=== PATIENT | female | born 1965 | race Caucasian/White ===

== ENCOUNTER 2021-06-03 20:27 | Inpatient (IN) | payer MEDICARE ==
[2021-06-03 22:33] VITALS: BMI 24.3
[2021-06-04] MEDS ORDERED: Ondansetron PF 4 MG/2 ML Vial IVP PRN (00:05)
[2021-06-04] MEDS ORDERED: Ondansetron ODT 4 MG TAB PO PRN (00:05)
[2021-06-04] MEDS ORDERED: Loperamide HCl 2 MG CAP PO PRN (00:05)
[2021-06-04] MEDS ORDERED: Electrolyte Replacement Protocol 1 EACH FS SCH (00:15)
[2021-06-04] MEDS ORDERED: Tacrolimus 1 MG CAP PO SCH (00:45)
[2021-06-04] MEDS ORDERED: Mycophenolate 250 MG CAP PO SCH (00:45)
[2021-06-04] MEDS ORDERED: traZODone HCl 50 MG TAB PO SCH (01:00)
[2021-06-04] MEDS: Sodium Chloride 0.9% 1,000 ML IV SCH ×4 (01:05→20:19)
[2021-06-04] MEDS: Morphine 4 MG/ML VIAL SLOW IVP PRN ×2 (01:06→12:22)
[2021-06-04] MEDS: traMADol HCl 50 MG TAB PO PRN ×3 (01:07→16:26)
[2021-06-04] MEDS: Fish Oil 1,000 MG CAP PO SCH ×3 (01:15→20:18)
[2021-06-04] MEDS: Methocarbamol 500 MG TAB PO SCH ×4 (01:16→20:18)
[2021-06-04 04:19] LABS: Phosphorus 4.3 mg/dL (2.3-4.7)
[2021-06-04 04:21] LABS: Anion Gap 12 mmol/L (10-20); BUN (Urea Nitrogen) 62 mg/dL (9.8-20.1); Calc. Creatinine Clearance 21 mL/min (70-130); Calcium 7.8 mg/dL (7.8-10.44); Carbon Dioxide 13 mmol/L (22-29); Chloride 117 mmol/L (98-107); Glucose 84 mg/dL (70-105); Magnesium 1.6 mg/dL (1.6-2.6); Potassium 3.3 mmol/L (3.5-5.1); Sodium 139 mmol/L (136-145)
[2021-06-04 04:26] LABS: #Eosinphils 0.1 thou/uL (0.0-0.7); #Lymphocytes 1.2 thou/uL (1.20-3.40); #Monocytes 0.4 thou/uL (0.11-0.59); #Neutrophils 1.6 thou/uL (1.40-6.50); %Basophils 0.8 % (0.0-1.0); %Eosinophils 3.6 % (0.0-10.0); %Lymphocytes 35.8 % (21.0-51.0); %Monocytes 10.6 % (0.0-10.0); %Neutrophils 49.2 % (42.0-75.0); Hemoglobin 9.1 g/dL (12.0-16.0); Mean Corpuscular HGB CONC 33.7 g/dL (32.0-36.0); Mean Corpuscular Hemoglobin 30.9 pg (27.0-31.0); Mean Corpuscular Volume 91.6 fL (78.0-98.0); Mean Platelet Volume 10.4 fL (7.4-10.4); Platelet Count 105 thou/uL (130-400); Platelet Morphology Comment Appears Decreased; RBC Distribution Width 13.6 % (11.5-14.5); Red Blood Cell (RBC) Count 2.96 mill/uL (4.20-5.40); White Blood Cell (WBC) Count 3.3 thou/uL (4.8-10.8)
[2021-06-04] MEDS ORDERED: Potassium Chloride 20 MEQ TAB PO SCH (04:26)
[2021-06-04] MEDS: Magnesium 2 GM/50 ML 2 GM in Premix Bag 1 BAG IVPB SCH ×2 (05:52→06:49)
[2021-06-04] MEDS: Tacrolimus 1 MG CAP PO SCH ×2 (09:23→20:19)
[2021-06-04] MEDS: Mycophenolate 250 MG CAP PO SCH ×2 (10:08→20:27)
[2021-06-04] MEDS ORDERED: Acetaminophen 325 MG TAB PO SCH (10:15)
[2021-06-04] MEDS: Sodium Bicarbonate Tab 325 MG TAB PO SCH ×2 (16:23→20:17)
[2021-06-04] MEDS: traZODone HCl 50 MG TAB PO SCH (20:18)
[2021-06-05] MEDS: Methocarbamol 500 MG TAB PO SCH ×4 (03:22→20:30)
[2021-06-05] MEDS: Fish Oil 1,000 MG CAP PO SCH ×3 (03:22→20:30)
[2021-06-05] MEDS: traMADol HCl 50 MG TAB PO PRN ×2 (04:06→20:40)
[2021-06-05] MEDS: Sodium Chloride 0.9% 1,000 ML IV SCH (04:14)
[2021-06-05] MEDS: Morphine 4 MG/ML VIAL SLOW IVP PRN ×2 (05:07→16:56)
[2021-06-05 05:59] LABS: #Eosinphils 0.1 thou/uL (0.0-0.7); #Lymphocytes 0.6 thou/uL (1.20-3.40); #Monocytes 0.3 thou/uL (0.11-0.59); #Neutrophils 1.8 thou/uL (1.40-6.50); %Basophils 0.3 % (0.0-1.0); %Eosinophils 2.8 % (0.0-10.0); %Lymphocytes 21.1 % (21.0-51.0); %Monocytes 11.2 % (0.0-10.0); %Neutrophils 64.7 % (42.0-75.0); Hemoglobin 8.7 g/dL (12.0-16.0); Mean Corpuscular HGB CONC 32.8 g/dL (32.0-36.0); Mean Corpuscular Hemoglobin 30.8 pg (27.0-31.0); Mean Corpuscular Volume 93.7 fL (78.0-98.0); Mean Platelet Volume 10.3 fL (7.4-10.4); Platelet Count 99 thou/uL (130-400); Red Blood Cell (RBC) Count 2.81 mill/uL (4.20-5.40); White Blood Cell (WBC) Count 2.8 thou/uL (4.8-10.8)
[2021-06-05 06:03] LABS: Anion Gap 12 mmol/L (10-20); BUN (Urea Nitrogen) 46 mg/dL (9.8-20.1); Calc. Creatinine Clearance 23 mL/min (70-130); Carbon Dioxide 13 mmol/L (22-29); Chloride 119 mmol/L (98-107); Glucose 86 mg/dL (70-105); Potassium 3.7 mmol/L (3.5-5.1); Sodium 140 mmol/L (136-145)
[2021-06-05] MEDS: Sodium Bicarbonate Tab 325 MG TAB PO SCH ×3 (09:18→20:30)
[2021-06-05] MEDS: Mycophenolate 250 MG CAP PO SCH ×2 (09:19→20:31)
[2021-06-05] MEDS ORDERED: Fioricet 325/50/40 mg Tablet PO PRN (09:20)
[2021-06-05] MEDS ORDERED: Fentanyl 250 MCG/5 ML VIAL ONE (10:52)
[2021-06-05] MEDS ORDERED: Ketamine 50 MG/ML (10ML VIAL) ONE (11:07)
[2021-06-05] MEDS ORDERED: PROPOFOL 200 MG/20 ML VIAL ONE (11:51)
[2021-06-05] MEDS ORDERED: SUMAtriptan Succinate 50 MG TAB PO PRN (12:10)
[2021-06-05 14:49] LABS: Iron 121 ug/dL (50-170); Iron Binding Capacity, Total 194 mcg/dL (265-497)
[2021-06-05 15:16] LABS: Ferritin 146.4 ng/mL (10-291)
[2021-06-05] MEDS: Metoclopramide HCl 10 MG/2 ML VIAL IVP SCH ×2 (15:33→20:30)
[2021-06-05] MEDS: Tacrolimus 1 MG CAP PO SCH ×2 (15:37→20:30)
[2021-06-05] MEDS: traZODone HCl 50 MG TAB PO SCH (20:31)
[2021-06-06] MEDS: Morphine 4 MG/ML VIAL SLOW IVP PRN ×3 (01:09→19:58)
[2021-06-06] MEDS: Metoclopramide HCl 10 MG/2 ML VIAL IVP SCH ×3 (05:49→20:44)
[2021-06-06] MEDS: traMADol HCl 50 MG TAB PO PRN (05:51)
[2021-06-06 06:10] LABS: #Eosinphils 0.1 thou/uL (0.0-0.7); #Lymphocytes 0.8 thou/uL (1.20-3.40); #Monocytes 0.4 thou/uL (0.11-0.59); #Neutrophils 1.9 thou/uL (1.40-6.50); %Basophils 0.3 % (0.0-1.0); %Eosinophils 2.3 % (0.0-10.0); %Lymphocytes 25.9 % (21.0-51.0); %Monocytes 11.4 % (0.0-10.0); Hemoglobin 8.9 g/dL (12.0-16.0); Mean Corpuscular HGB CONC 32.1 g/dL (32.0-36.0); Mean Corpuscular Hemoglobin 30.1 pg (27.0-31.0); Mean Platelet Volume 10.5 fL (7.4-10.4); Platelet Count 107 thou/uL (130-400); RBC Distribution Width 14.1 % (11.5-14.5); Red Blood Cell (RBC) Count 2.96 mill/uL (4.20-5.40); White Blood Cell (WBC) Count 3.1 thou/uL (4.8-10.8)
[2021-06-06 06:33] LABS: Anion Gap 12 mmol/L (10-20); BUN (Urea Nitrogen) 36 mg/dL (9.8-20.1); Calc. Creatinine Clearance 23 mL/min (70-130); Calcium 7.9 mg/dL (7.8-10.44); Carbon Dioxide 14 mmol/L (22-29); Chloride 118 mmol/L (98-107); Glucose 84 mg/dL (70-105); Potassium 3.5 mmol/L (3.5-5.1); Sodium 140 mmol/L (136-145)
[2021-06-06] MEDS: Fish Oil 1,000 MG CAP PO SCH ×2 (08:33→20:43)
[2021-06-06] MEDS: Sodium Bicarbonate Tab 325 MG TAB PO SCH ×3 (08:33→20:43)
[2021-06-06] MEDS: Methocarbamol 500 MG TAB PO SCH ×3 (08:33→20:43)
[2021-06-06] MEDS: Tacrolimus 1 MG CAP PO SCH ×2 (08:33→20:43)
[2021-06-06] MEDS: Mycophenolate 250 MG CAP PO SCH ×2 (09:37→20:43)
[2021-06-06] MEDS: traZODone HCl 50 MG TAB PO SCH (20:43)
[2021-06-07] MEDS: Morphine 4 MG/ML VIAL SLOW IVP PRN ×2 (02:18→23:48)
[2021-06-07] MEDS: Metoclopramide HCl 10 MG/2 ML VIAL IVP SCH ×3 (05:22→20:21)
[2021-06-07] MEDS: traMADol HCl 50 MG TAB PO PRN ×2 (05:25→20:35)
[2021-06-07 06:28] LABS: Anion Gap 10 mmol/L (10-20); BUN (Urea Nitrogen) 30 mg/dL (9.8-20.1); Calc. Creatinine Clearance 24 mL/min (70-130); Carbon Dioxide 18 mmol/L (22-29); Chloride 117 mmol/L (98-107); Glucose 97 mg/dL (70-105); Potassium 3.5 mmol/L (3.5-5.1); Sodium 141 mmol/L (136-145)
[2021-06-07] MEDS: Methocarbamol 500 MG TAB PO SCH ×3 (09:24→20:22)
[2021-06-07] MEDS: Sodium Bicarbonate Tab 325 MG TAB PO SCH ×3 (09:24→20:22)
[2021-06-07] MEDS: Mycophenolate 250 MG CAP PO SCH ×2 (09:24→20:29)
[2021-06-07] MEDS: Fish Oil 1,000 MG CAP PO SCH ×2 (09:24→20:21)
[2021-06-07] MEDS: Dextrose 5 %-0.45 % NaCl 1,000 ML IV SCH ×2 (09:24→18:04)
[2021-06-07] MEDS: Tacrolimus 1 MG CAP PO SCH ×2 (09:25→20:22)
[2021-06-07] MEDS: traZODone HCl 50 MG TAB PO SCH (20:22)
[2021-06-08 07:12] LABS: Anion Gap 9 mmol/L (10-20); BUN (Urea Nitrogen) 22 mg/dL (9.8-20.1); Calc. Creatinine Clearance 29 mL/min (70-130); Calcium 7.8 mg/dL (7.8-10.44); Carbon Dioxide 19 mmol/L (22-29); Chloride 115 mmol/L (98-107); Glucose 102 mg/dL (70-105); Potassium 3.2 mmol/L (3.5-5.1); Sodium 140 mmol/L (136-145)
[2021-06-08] MEDS: Tacrolimus 1 MG CAP PO SCH ×2 (08:51→19:43)
[2021-06-08] MEDS: Mycophenolate 250 MG CAP PO SCH ×2 (08:51→19:42)
[2021-06-08] MEDS: Sodium Bicarbonate Tab 325 MG TAB PO SCH ×3 (08:51→19:43)
[2021-06-08] MEDS: Fish Oil 1,000 MG CAP PO SCH ×2 (08:52→19:42)
[2021-06-08] MEDS: Methocarbamol 500 MG TAB PO SCH ×3 (08:52→19:42)
[2021-06-08] MEDS: Morphine 4 MG/ML VIAL SLOW IVP PRN ×2 (10:26→19:44)
[2021-06-08] MEDS ORDERED: Potassium Chloride 20 MEQ TAB PO SCH ×2 (10:30→18:30)
[2021-06-08] MEDS ORDERED: Sodium Bicarbonate Tab 325 MG TAB PO SCH ×2 (10:45→11:00)
[2021-06-08 17:32] LABS: Anion Gap 9 mmol/L (10-20); BUN (Urea Nitrogen) 18 mg/dL (9.8-20.1); Calc. Creatinine Clearance 31 mL/min (70-130); Calcium 7.9 mg/dL (7.8-10.44); Carbon Dioxide 19 mmol/L (22-29); Chloride 115 mmol/L (98-107); Glucose 105 mg/dL (70-105); Potassium 3.3 mmol/L (3.5-5.1); Sodium 140 mmol/L (136-145)
[2021-06-08] MEDS: traZODone HCl 50 MG TAB PO SCH (19:43)
[2021-06-09] MEDS: Loperamide HCl 2 MG CAP PO PRN ×3 (00:54→20:11)
[2021-06-09] MEDS: traMADol HCl 50 MG TAB PO PRN ×3 (03:41→20:17)
[2021-06-09] MEDS: Fish Oil 1,000 MG CAP PO SCH ×2 (08:13→20:10)
[2021-06-09] MEDS: Methocarbamol 500 MG TAB PO SCH ×3 (08:13→20:10)
[2021-06-09] MEDS: Sodium Bicarbonate Tab 325 MG TAB PO SCH ×3 (08:13→20:11)
[2021-06-09] MEDS: Tacrolimus 1 MG CAP PO SCH ×2 (08:13→20:11)
[2021-06-09] MEDS: Mycophenolate 250 MG CAP PO SCH ×2 (08:13→20:10)
[2021-06-09 11:32] LABS: Anion Gap 8 mmol/L (10-20); BUN (Urea Nitrogen) 15 mg/dL (9.8-20.1); Calc. Creatinine Clearance 34 mL/min (70-130); Calcium 7.9 mg/dL (7.8-10.44); Carbon Dioxide 19 mmol/L (22-29); Chloride 116 mmol/L (98-107); Glucose 85 mg/dL (70-105); Potassium 3.9 mmol/L (3.5-5.1); Sodium 139 mmol/L (136-145)
[2021-06-09 16:01] LABS: Anion Gap 10 mmol/L (10-20); BUN (Urea Nitrogen) 14 mg/dL (9.8-20.1); Calc. Creatinine Clearance 36 mL/min (70-130); Calcium 7.9 mg/dL (7.8-10.44); Carbon Dioxide 18 mmol/L (22-29); Chloride 116 mmol/L (98-107); Glucose 84 mg/dL (70-105); Potassium 3.8 mmol/L (3.5-5.1); Sodium 140 mmol/L (136-145)
[2021-06-09] MEDS: traZODone HCl 50 MG TAB PO SCH (20:11)
[2021-06-10 06:56] LABS: #Eosinphils 0.1 thou/uL (0.0-0.7); #Monocytes 0.4 thou/uL (0.11-0.59); %Basophils 1.2 % (0.0-1.0); %Lymphocytes 28.2 % (21.0-51.0); %Monocytes 10.9 % (0.0-10.0); %Neutrophils 55.7 % (42.0-75.0); Hemoglobin 7.8 g/dL (12.0-16.0); Mean Corpuscular Hemoglobin 30.3 pg (27.0-31.0); Mean Corpuscular Volume 94.4 fL (78.0-98.0); Mean Platelet Volume 9.8 fL (7.4-10.4); Platelet Count 106 thou/uL (130-400); RBC Distribution Width 14.3 % (11.5-14.5); Red Blood Cell (RBC) Count 2.57 mill/uL (4.20-5.40); White Blood Cell (WBC) Count 3.5 thou/uL (4.8-10.8)
[2021-06-10 07:09] LABS: Anion Gap 11 mmol/L (10-20); BUN (Urea Nitrogen) 14 mg/dL (9.8-20.1); Calc. Creatinine Clearance 38 mL/min (70-130); Calcium 7.8 mg/dL (7.8-10.44); Carbon Dioxide 18 mmol/L (22-29); Chloride 116 mmol/L (98-107); Glucose 79 mg/dL (70-105); Potassium 3.5 mmol/L (3.5-5.1); Sodium 141 mmol/L (136-145)
[2021-06-10] MEDS: Methocarbamol 500 MG TAB PO SCH ×2 (08:36→14:29)
[2021-06-10] MEDS: Sodium Bicarbonate Tab 325 MG TAB PO SCH ×2 (08:36→14:29)
[2021-06-10] MEDS: Tacrolimus 1 MG CAP PO SCH (08:36)
[2021-06-10] MEDS: Fish Oil 1,000 MG CAP PO SCH (08:36)
[2021-06-10] MEDS: Mycophenolate 250 MG CAP PO SCH (08:36)
[2021-06-10] MEDS ORDERED: Magnesium Sulfate 3 GM in Sodium Chloride 0.9% 100 ML IVPB SCH (09:15)
[2021-06-10] MEDS: traMADol HCl 50 MG TAB PO PRN (09:54)
[2021-06-10 14:16] LABS: Magnesium 1.9 mg/dL (1.6-2.6)
[2021-06-10 15:48] VITALS: BP 110/72; TEMP 98.6
== END 2021-06-10 17:09 | disposition home or self-care (01) | DRG 683 ==
LOC: 2NO 22:27 → T4-A 06-04 13:17
PROVIDERS: ADMIT Internal Medicine; ATTEND Internal Medicine
PROC: 0DB78ZX Excision of Stomach, Pylorus, Via Natural or Artificial Opening Endoscopic, Diagnostic (ICD-10-PCS; principal; 2021-06-05)
PROC: 0DB98ZX Excision of Duodenum, Via Natural or Artificial Opening Endoscopic, Diagnostic (ICD-10-PCS; 2021-06-05)
PROC: 0DBE8ZX Excision of Large Intestine, Via Natural or Artificial Opening Endoscopic, Diagnostic (ICD-10-PCS; 2021-06-05)
DX: N17.9 Acute kidney failure, unspecified (principal); E87.2 Acidosis; D61.818 Other pancytopenia; Z94.4 Liver transplant status; N18.4 Chronic kidney disease, stage 4 (severe); D63.1 Anemia in chronic kidney disease; E86.0 Dehydration; E83.42 Hypomagnesemia; I12.9 Hypertensive chronic kidney disease with stage 1 through stage 4 chronic kidney disease, or unspecified chronic kidney disease; K74.60 Unspecified cirrhosis of liver; K52.9 Noninfective gastroenteritis and colitis, unspecified; K29.80 Duodenitis without bleeding; Y83.0 Surgical operation with transplant of whole organ as the cause of abnormal reaction of the patient, or of later complication, without mention of misadventure at the time of the procedure; E87.6 Hypokalemia; Z79.899 Other long term (current) drug therapy; Z90.49 Acquired absence of other specified parts of digestive tract; Z90.710 Acquired absence of both cervix and uterus; Z90.89 Acquired absence of other organs; Z87.891 Personal history of nicotine dependence; Z82.3 Family history of stroke; Z86.19 Personal history of other infectious and parasitic diseases
CPT/HCPCS: 36415; 80048; 80197; 82607; 82728; 82746; 83540; 83550; 83630; 83735; 84100; 85025; 87015; 87045; 87046; 87206; 87324; 87427; 87449; 88305; J2270; J2405; J2704; J2765; J3010; J3475; J3490; J7042; J7050; J7507; J7517

== ENCOUNTER 2022-07-03 16:40 | Emergency (ER) | payer MEDICARE ==
[2022-07-03] MEDS ORDERED: FENTANYL 50 MCG/ML 1 ML VIAL ONE (17:08)
[2022-07-03 17:21] LABS: #Basophils 0.1 thou/uL (0.0-0.2); #Eosinphils 0.3 thou/uL (0.0-0.7); #Lymphocytes 1.3 thou/uL (1.20-3.40); #Monocytes 0.6 thou/uL (0.11-0.59); #Neutrophils 3.9 thou/uL (1.40-6.50); %Basophils 0.8 % (0.0-1.0); %Eosinophils 4.2 % (0.0-10.0); %Lymphocytes 21.9 % (21.0-51.0); %Monocytes 9.1 % (0.0-10.0); Hemoglobin 13.2 g/dL (12.0-16.0); Mean Corpuscular HGB CONC 35.6 g/dL (32.0-36.0); Mean Corpuscular Hemoglobin 34.4 pg (27.0-31.0); Mean Corpuscular Volume 96.7 fl (78.0-98.0); Mean Platelet Volume 9.3 fL (7.4-10.4); Platelet Count 139 10x3/uL (130-400); RBC Distribution Width 12.7 % (11.5-14.5); Red Blood Cell (RBC) Count 3.83 mill/uL (4.20-5.40); White Blood Cell (WBC) Count 6.1 10x3/uL (4.8-10.8)
[2022-07-03] MEDS ORDERED: Lidocaine 1% w/Epinephrine 1:100K 20 ML VIAL ONE (17:21)
[2022-07-03] MEDS ORDERED: LORazepam 2 MG/ML SYR.(CARPUJECT) ONE (17:24)
[2022-07-03 17:34] LABS: INR-International Normal Ratio 1.1; PTT 27.4 sec (22.9-36.1); Prothrombin Time 14.1 sec (12.0-14.7)
[2022-07-03 17:42] LABS: ALT (SGPT) 19 U/L (8-55); AST (SGOT) 25 U/L (5-34); Alkaline Phosphatase 101 U/L (40-110); Anion Gap 14 mmol/L (10-20); BUN (Urea Nitrogen) 17 mg/dL (9.8-20.1); Bilirubin, Total 0.3 mg/dL (0.2-1.2); Calc. Creatinine Clearance 0 mL/min (70-130); Carbon Dioxide 21 mmol/L (22-29); Chloride 108 mmol/L (98-107); Estimated GFR 51; Globulin 2.8 g/dL (2.4-3.5); Glucose 83 mg/dL (70-105); Potassium 3.3 mmol/L (3.5-5.1); Protein, Total 6.8 g/dL (6.0-8.3); Sodium 140 mmol/L (136-145)
[2022-07-03] MEDS ORDERED: Lidocaine 4% Cream 5 GM TUBE w/ Tegaderm ONE (18:29)
[2022-07-03] MEDS ORDERED: Metoclopramide HCl 10 MG/2 ML VIAL ONE (18:33)
[2022-07-03] MEDS ORDERED: Lidocaine 1% PF 5 ML VIAL ONE ×2 (21:11→21:21)
[2022-07-03] MEDS ORDERED: Boostrix 0.5 ML (Tdap) VIAL (>/=7 yrs of age) ONE (23:05)
== END 2022-07-03 23:16 | disposition home or self-care (01) ==
LOC: ERS 16:40
DX: S02.40DA Maxillary fracture, left side, initial encounter for closed fracture (principal); S02.32XA Fracture of orbital floor, left side, initial encounter for closed fracture; S02.19XA Other fracture of base of skull, initial encounter for closed fracture; W55.12XA Struck by horse, initial encounter; Z23 Encounter for immunization
CPT/HCPCS: 70450; 70486; 72125; 80053; 85025; 85610; 85730; 90715; J2060; J3010; 12013; 36415; 90471; 96374; 96375; G0390; J2765

== ENCOUNTER 2023-06-05 00:10 | Inpatient (IN) | payer MEDICARE ==
[2023-06-05] MEDS ORDERED: Ondansetron ODT 4 MG TAB PO PRN (02:39)
[2023-06-05] MEDS ORDERED: Nicotine 21 MG PATCH TD PRN (02:39)
[2023-06-05] MEDS ORDERED: Ondansetron PF 4 MG/2 ML Vial IVP PRN (02:39)
[2023-06-05] MEDS: traZODone HCl 150 MG TAB PO SCH (04:28)
[2023-06-05] MEDS: Piperacillin/Tazobactam 3.375 GM in Sodium Chloride 0.9% 100 ML IVPB SCH (04:30)
[2023-06-05] MEDS: Morphine 2 MG/ML VIAL SLOW IVP PRN (04:41)
[2023-06-05 06:01] LABS: #Eosinphils 0.1 thou/uL (0.0-0.7); #Monocytes 0.6 thou/uL (0.11-0.59); #Neutrophils 3.9 thou/uL (1.40-6.50); %Basophils 0.2 % (0.0-1.0); %Eosinophils 1.4 % (0.0-10.0); %Lymphocytes 17.5 % (21.0-51.0); %Monocytes 10.4 % (0.0-10.0); %Neutrophils 70.1 % (42.0-75.0); Hematocrit 31.2 % (36.0-47.0); Hemoglobin 10.4 g/dL (12.0-16.0); Mean Corpuscular HGB CONC 33.3 g/dL (32.0-36.0); Mean Corpuscular Hemoglobin 31.5 pg (27.0-31.0); Mean Corpuscular Volume 94.5 fl (78.0-98.0); Mean Platelet Volume 12.2 fL (7.4-10.4); RBC Distribution Width 14.5 % (11.5-14.5); White Blood Cell (WBC) Count 5.6 10x3/uL (4.8-10.8)
[2023-06-05 06:03] LABS: Platelet Count 115 10x3/uL (130-400)
[2023-06-05 06:14] VITALS: BMI 23.0
[2023-06-05 06:30] LABS: Anion Gap 13 mmol/L (10-20); BUN (Urea Nitrogen) 24 mg/dL (9.8-20.1); Calc. Creatinine Clearance 53 mL/min (70-130); Calcium 8.1 mg/dL (7.8-10.44); Carbon Dioxide 19 mmol/L (22-29); Chloride 112 mmol/L (98-107); Estimated GFR 57; Glucose 96 mg/dL (70-105); Potassium 4.2 mmol/L (3.5-5.1); Sodium 140 mmol/L (136-145)
[2023-06-05] MEDS: Diazepam 5 MG TAB PO SCH (09:02)
[2023-06-05] MEDS: FLUoxetine HCl 10 MG CAP PO SCH (09:02)
[2023-06-05] MEDS: Tacrolimus 1 MG CAP PO SCH (09:02)
[2023-06-05] MEDS: Topiramate 25 MG TAB PO SCH (09:02)
[2023-06-05] MEDS ORDERED: PROPOFOL 20 ML ONE (12:11)
[2023-06-05] MEDS ORDERED: Lidocaine 1% PF 5 ML VIAL ONE (12:11)
[2023-06-05] MEDS ORDERED: fentaNYL PF 100 MCG/2 ML SYRINGE ONE ×2 (12:11→12:54)
[2023-06-05] MEDS ORDERED: Ondansetron PF 4 MG/2 ML Vial ONE (12:48)
[2023-06-05] MEDS ORDERED: Dexamethasone 4 mg/ml Vial ONE (12:48)
[2023-06-05] MEDS ORDERED: Morphine Sulfate 2 MG/ML SYRINGE SLOW IVP PRN (13:01)
[2023-06-05] MEDS ORDERED: Promethazine HCl 25 MG/ML VIAL IM PRN (13:01)
[2023-06-05] MEDS ORDERED: HYDROmorphone 2 MG/ML VIAL SLOW IVP PRN (13:01)
[2023-06-05] MEDS ORDERED: PACU-Morphine 4MG/ML VIAL SLOW IVP PRN (13:01)
[2023-06-05] MEDS ORDERED: Ondansetron HCl/PF 4 MG/2 ML Vial IVP PRN (13:01)
[2023-06-05] MEDS: cefTRIAXone\\ROCEPHIN 1 GM in Sodium Chloride 0.9% 100 ML IVPB SCH (14:27)
[2023-06-05] MEDS: Sodium Chloride 0.9% 1,000 ML IV SCH (14:33)
[2023-06-05] MEDS ORDERED: traZODone HCl 50 MG TAB PO SCH (21:00)
[2023-06-06] MEDS: traZODone HCl 150 MG TAB PO PRN (02:41)
[2023-06-06 04:25] LABS: #Monocytes 0.8 thou/uL (0.11-0.59); #Neutrophils 3.3 thou/uL (1.40-6.50); %Basophils 0.2 % (0.0-1.0); %Eosinophils 0.6 % (0.0-10.0); %Lymphocytes 20.1 % (21.0-51.0); %Monocytes 14.6 % (0.0-10.0); %Neutrophils 64.1 % (42.0-75.0); Hematocrit 29.1 % (36.0-47.0); Hemoglobin 9.6 g/dL (12.0-16.0); Mean Corpuscular Hemoglobin 31.6 pg (27.0-31.0); Mean Corpuscular Volume 95.7 fl (78.0-98.0); Mean Platelet Volume 12.5 fL (7.4-10.4); Platelet Count 101 10x3/uL (130-400); RBC Distribution Width 14.6 % (11.5-14.5); Red Blood Cell (RBC) Count 3.04 mill/uL (4.20-5.40); White Blood Cell (WBC) Count 5.1 10x3/uL (4.8-10.8)
[2023-06-06] MEDS: Acetaminophen 325 MG TAB PO PRN (06:21)
[2023-06-06 06:57] LABS: Anion Gap 14 mmol/L (10-20); BUN (Urea Nitrogen) 19 mg/dL (9.8-20.1); Calc. Creatinine Clearance 49 mL/min (70-130); Calcium 8.2 mg/dL (7.8-10.44); Carbon Dioxide 19 mmol/L (22-29); Chloride 110 mmol/L (98-107); Estimated GFR 52; Glucose 118 mg/dL (70-105); Sodium 139 mmol/L (136-145)
[2023-06-06] MEDS ORDERED: Sodium Chloride 0.9% 1,000 ML IV SCH (10:45)
[2023-06-06] MEDS ORDERED: Vancomycin 1 GM in Premix 1 BAG IVPB SCH (21:00)
[2023-06-07 04:53] LABS: #Eosinphils 0.1 thou/uL (0.0-0.7); #Monocytes 0.6 thou/uL (0.11-0.59); #Neutrophils 2.5 thou/uL (1.40-6.50); %Basophils 0.2 % (0.0-1.0); %Eosinophils 3.1 % (0.0-10.0); %Lymphocytes 26.9 % (21.0-51.0); %Monocytes 13.5 % (0.0-10.0); %Neutrophils 56.1 % (42.0-75.0); Hematocrit 28.8 % (36.0-47.0); Hemoglobin 9.2 g/dL (12.0-16.0); Mean Corpuscular HGB CONC 31.9 g/dL (32.0-36.0); Mean Corpuscular Hemoglobin 30.5 pg (27.0-31.0); Mean Corpuscular Volume 95.4 fl (78.0-98.0); Mean Platelet Volume 12.5 fL (7.4-10.4); RBC Distribution Width 14.7 % (11.5-14.5); Red Blood Cell (RBC) Count 3.02 mill/uL (4.20-5.40); White Blood Cell (WBC) Count 4.5 10x3/uL (4.8-10.8)
[2023-06-07 05:23] LABS: Anion Gap 11 mmol/L (10-20); BUN (Urea Nitrogen) 18 mg/dL (9.8-20.1); Calc. Creatinine Clearance 45 mL/min (70-130); Calcium 8.3 mg/dL (7.8-10.44); Carbon Dioxide 22 mmol/L (22-29); Chloride 111 mmol/L (98-107); Estimated GFR 47; Glucose 108 mg/dL (70-105); Potassium 3.9 mmol/L (3.5-5.1); Sodium 140 mmol/L (136-145)
[2023-06-07 05:45] LABS: Platelet Count 103 10x3/uL (130-400)
[2023-06-07] MEDS ORDERED: Acetaminophen/Codeine 30-300mg Tablet PO PRN (07:45)
[2023-06-07] MEDS ORDERED: Sodium Chloride 0.9% 1,000 ML IV SCH (07:53)
[2023-06-07] MEDS ORDERED: Enoxaparin 40 MG (0.4 mL) SYRINGE SC SCH (09:00)
[2023-06-07] MEDS: Sodium Bicarbonate Tab 325 MG TAB PO SCH (09:56)
[2023-06-07] MEDS: Amoxicillin/Potassium Clav 875 MG TAB PO SCH (09:57)
[2023-06-07] MEDS: Heparin 5,000 UNITS/ML VIAL SC SCH (09:57)
[2023-06-07] MEDS: Lactated Ringer's 1,000 ML IV SCH (09:58)
[2023-06-07] MEDS: Acetaminophen/Codeine 30-300mg Tablet PO PRN (10:06)
[2023-06-08 03:46] LABS: #Eosinphils 0.2 thou/uL (0.0-0.7); #Monocytes 0.5 thou/uL (0.11-0.59); %Basophils 0.5 % (0.0-1.0); %Eosinophils 4.6 % (0.0-10.0); %Lymphocytes 30.6 % (21.0-51.0); %Monocytes 13.2 % (0.0-10.0); %Neutrophils 50.8 % (42.0-75.0); Hematocrit 30.9 % (36.0-47.0); Hemoglobin 10.1 g/dL (12.0-16.0); Mean Corpuscular HGB CONC 32.7 g/dL (32.0-36.0); Mean Corpuscular Hemoglobin 31.9 pg (27.0-31.0); Mean Corpuscular Volume 97.5 fl (78.0-98.0); Platelet Count 119 10x3/uL (130-400); RBC Distribution Width 14.7 % (11.5-14.5); Red Blood Cell (RBC) Count 3.17 mill/uL (4.20-5.40)
[2023-06-08 04:15] LABS: Anion Gap 15 mmol/L (10-20); BUN (Urea Nitrogen) 22 mg/dL (9.8-20.1); Calc. Creatinine Clearance 44 mL/min (70-130); Calcium 8.7 mg/dL (7.8-10.44); Carbon Dioxide 24 mmol/L (22-29); Chloride 109 mmol/L (98-107); Estimated GFR 46; Glucose 106 mg/dL (70-105); Potassium 4.5 mmol/L (3.5-5.1); Sodium 143 mmol/L (136-145)
[2023-06-08 15:33] VITALS: BP 135/79; TEMP 98
== END 2023-06-08 16:30 | disposition home or self-care (01) | DRG 580 ==
LOC: SURG A 02:25 → OBSVTOIN 06-06 09:42
PROVIDERS: ADMIT Student in an Organized Health Care Education/Training Program; ATTEND Internal Medicine
PROC: 0KBS0ZZ Excision of Right Lower Leg Muscle, Open Approach (ICD-10-PCS; principal; 2023-06-05)
DX: S81.851A Open bite, right lower leg, initial encounter (principal); N17.9 Acute kidney failure, unspecified; Z94.4 Liver transplant status; S61.452A Open bite of left hand, initial encounter; W54.0XXA Bitten by dog, initial encounter; N18.30 Chronic kidney disease, stage 3 unspecified; Z79.899 Other long term (current) drug therapy; G43.909 Migraine, unspecified, not intractable, without status migrainosus; Z87.891 Personal history of nicotine dependence; F41.9 Anxiety disorder, unspecified
CPT/HCPCS: 36415; 80048; 85025; 96374; 96375; 96376; G0378; J0696; J1100; J1644; J2272; J2405; J2543; J2704; J3490; J7050; J7120; J7507

== ENCOUNTER 2025-02-11 17:04 | Inpatient (IN) | payer MEDICARE ==
[2025-02-11 17:51] VITALS: BMI 24.5
[2025-02-11] MEDS ORDERED: Ondansetron PF 4 MG/2 ML Vial SLOW IVP PRN (19:52)
[2025-02-11] MEDS ORDERED: Communication Order-Pharmacy FS SCH (20:00)
[2025-02-11] MEDS: HYDROcodone/Acetaminophen 5/325 mg Tablet PO PRN (22:26)
[2025-02-12] MEDS: HYDROcodone/Acetaminophen 5/325 mg Tablet PO PRN (05:42)
[2025-02-12 09:21] LABS: INR-International Normal Ratio 1.0; Prothrombin Time 13.4 sec (12.0-14.7)
[2025-02-12 09:22] LABS: PTT 28.7 sec (22.9-36.1)
[2025-02-12] MEDS: Acetaminophen 325 MG TAB PO PRN (10:52)
[2025-02-12] MEDS ORDERED: Lidocaine 1% PF 5 ML VIAL ONE ×2 (15:46→17:15)
[2025-02-12] MEDS ORDERED: Ropivacaine 0.5% HCl/PF (150 MG/30 ML VIAL) ONE (15:46)
[2025-02-12] MEDS ORDERED: Ondansetron PF 4 MG/2 ML Vial ONE (17:15)
[2025-02-12] MEDS ORDERED: CEFAZOLIN 2 GM VIAL ONE (17:17)
[2025-02-12] MEDS ORDERED: PROPOFOL 200 MG/20 ML VIAL ONE (17:27)
[2025-02-13] MEDS ORDERED: HYDROcodone/Acetaminophen 10/325 mg Tablet PO PRN (00:38)
[2025-02-13] MEDS: Methocarbamol 500 MG TAB PO PRN (01:25)
[2025-02-13] MEDS: HYDROcodone/Acetaminophen 10/325 mg Tablet PO PRN (02:34)
[2025-02-13 08:34] VITALS: BP 165/89; TEMP 98.1
[2025-02-14] MEDS ORDERED: FLU (Fluarix Triv) 25-26 (6MOS UP)/PF 45 MCG/0.5 ML Syringe IM ONE (18:00)
== END 2025-02-13 09:30 | disposition home or self-care (01) | DRG 511 ==
LOC: SURG B 17:20 → OBSVTOIN 19:52
PROVIDERS: ADMIT Orthopaedic Surgery; ATTEND Orthopaedic Surgery
PROC: 0PSJ04Z Reposition Left Radius with Internal Fixation Device, Open Approach (ICD-10-PCS; principal; 2025-02-11)
PROC: 3E03329 Introduction of Other Anti-infective into Peripheral Vein, Percutaneous Approach (ICD-10-PCS; 2025-02-11)
PROC: 3E02340 Introduction of Influenza Vaccine into Muscle, Percutaneous Approach (ICD-10-PCS; 2025-02-11)
DX: S52.502A Unspecified fracture of the lower end of left radius, initial encounter for closed fracture (principal); Z94.4 Liver transplant status; G43.909 Migraine, unspecified, not intractable, without status migrainosus; I10 Essential (primary) hypertension; Z98.890 Other specified postprocedural states; Z90.49 Acquired absence of other specified parts of digestive tract; Z90.710 Acquired absence of both cervix and uterus; Z98.51 Tubal ligation status; Z23 Encounter for immunization
CPT/HCPCS: 36415; 85610; 85730; C1713; J2250; J2270; J2405; J2704; J2795; J3010